=== PATIENT | female | born 1995 | race Caucasian/White ===

== ENCOUNTER → 2022-05-28 15:06 | Outpatient (CLI) | payer BC, SELFPAY ==
[2022-05-30 10:01] LABS: Fecal Immunochemical Test Negative (Negative)
== END ==
PROVIDERS: PCP Physician Assistant; Visit Provider Physician Assistant
DX: R10.32 Left lower quadrant pain (principal)
CPT/HCPCS: 82274

== ENCOUNTER → 2023-08-13 12:38 | Outpatient (CLI) | payer OTHER, SELFPAY ==
--- NOTE | 2023-08-13 12:40 | DI.US.S_ITS ---
PROCEDURE: US PELVIC COMPLETE INDICATIONS: pelvic pain. known left ovarian cyst TECHNIQUE: Real-time scanning was performed of the pelvic organs, with image documentation. Additional endovaginal scanning was necessary due to incomplete visualization of the adnexal and endometrial structures by transabdominal scanning. COMPARISON: None. FINDINGS: Uterus: Uterus is anteverted and normal in size at 8.3 x 3.9 x 5.7 cm. The myometrium is homogeneous. The endometrium measures 9.8 mm combined thickness. No uterine fibroids. Ovaries: The right ovary measures 1.5 x 3.2 x 2.4 cm, with a calculated ovarian volume of 6.1 cc. The left ovary measures 2.8 x 2.6 x 3.3 cm, with a calculated ovarian volume of 12.6 cc. Left ovarian two simple cysts with the largest measuring 1.8 centimeters. The ovaries have a normal sonographic appearance. Less than 12 follicles can be seen in each ovary. No adnexal masses are seen. Other: No pathologic free abdominal or pelvic fluid. IMPRESSION: Left ovarian simple cysts measuring up to 1.8 centimeters, statistically benign and no follow-up is necessary. No cause for patient's pelvic pain is identified. We strive to produce accurate, complete, and clear reports of imaging services. To assist us in improving patient care, this report was composed using standard report templates and voice recognition software. Therefore, it may contain abnormal punctuation, insertions and/or omissions. Occasional wrong-word or sound-alike substitutions may occur. Though we review the report and make efforts to correct it, we do recommend that the report be read carefully in proper context to recognize any text inaccuracies. Dictated by: Ilya Potter M.D. on 08/13/2023 at 13:54 Approved by: Ilya Potter M.D. on 08/13/2023 at 13:57
--- NOTE | 2023-08-13 12:40 | DI.US.S_ITS ---
LIMITED ULTRASOUND OF LEFT BREAST: 08/13/2023 CLINICAL: Palpable left breast lump x 6 mos. No prior exams were available for comparison. Color flow and real-time ultrasound of the left breast 12 o'clock region were performed. Gould scale images of the real-time examination were reviewed. No significant abnormalities were seen sonographically in the left breast. IMPRESSION: NEGATIVE No sonographic evidence of malignancy in the region of the palpable abnormality. Exam findings were conveyed to the patient. Patient is advised to monitor for significant change. Clinical follow-up as needed. This exam was interpreted at Station ID: [id number]. Electronically Signed By: Ananda Vance M.D. [facility]08/13/2023 13:29:04 letter sent: Normal Exam Ultrasound BI-RADS: 1 Negative
== END ==
PROVIDERS: PCP Physician Assistant; Referring Provider Physician Assistant; Visit Provider Physician Assistant
DX: N63.20 Unspecified lump in the left breast, unspecified quadrant (principal); N83.292 Other ovarian cyst, left side; R10.2 Pelvic and perineal pain
CPT/HCPCS: 76642; 76830; 76856; 93975

== ENCOUNTER → 2024-05-12 18:52 | Outpatient (CLI) | payer BC, SELFPAY | PROVIDERS: PCP Physician Assistant; Visit Provider Student in an Organized Health Care Education/Training Program | DX: R30.0 Dysuria (principal) | CPT/HCPCS: 87086 ==

== ENCOUNTER 2024-05-12 19:15 | Emergency (ER) | payer BC, SELFPAY ==
[2024-05-12 19:18] VITALS: BP 125/91; PULSE 95; RESP 16; TEMP 36.9; O2SAT 100; BMI 22.2
--- NOTE | 2024-05-12 21:37 | PC.NURSE ---
Pt requests not to have IV placed at this time. Straight stick with 21g butterfly left AC without difficulty.
[2024-05-12 21:42] LABS: Add Manual Diff / Slide Review NO; Basophils Absolute Auto 0 /uL (0-100); Basophils Percent Auto 0.4 % (0-2); Eosinophils Absolute Auto 100 /uL (0-450); Eosinophils Percent Auto 1.5 % (2-4); Hematocrit 34.3 % (36-46); Lymphocytes Absolute Auto 2300 /uL (1100-4500); Lymphocytes Percent Auto 23.1 % (25-40); Mean Corpuscular HGB Conc 34.8 % (30-36); Mean Corpuscular Volume 88.9 fL (80-100); Monocytes Absolute Auto 1300 /uL (0-900); Monocytes Percent Auto 13.1 % (3-14); Neutrophils Absolute Auto 6200 /uL (1500-7000); Neutrophils Percent Auto 61.9 % (50-75); Platelet Count 296 X10^3/uL (150-400); Red Blood Cell Count 3.86 X10^6/uL (4.0-5.2); Red Cell Distribution Width 12.2 % (11.6-14.8); White Blood Cell Count 9.9 X10^3/uL (4.5-11.0)
[2024-05-12 21:57] LABS: Alanine Aminotransferase 20 IU/L (<35); Albumin 3.9 g/dL (3.5-5.0); Alkaline Phosphatase 66 U/L (38-126); Aspartate Aminotransferase 24 IU/L (14-36); BUN Creatinine Ratio 14.9 (6-22); Bilirubin Total 0.4 mg/dL (0.2-1.3); Blood Urea Nitrogen 11 mg/dL (7-17); Calcium 9.4 mg/dL (8.4-10.2); Carbon Dioxide 27 mmol/L (22-32); Chloride 103 mmol/L (98-107); Estimated Glomerular Filt Rate > 60 mL/min (>60); Globulin 3.8 g/dL (1.7-4.1); Glucose 101 mg/dL (70-100); HEMOLYSIS < 15 (0-50); Lipase 79 U/L (23-300); Potassium 4.4 mmol/L (3.4-5.1); Sodium 134 mmol/L (137-145); Total Protein 7.7 g/dL (6.3-8.2)
[2024-05-12 22:14] VITALS: BP 131/84; PULSE 102; O2SAT 99
[2024-05-12 22:30] VITALS: BP 105/61; PULSE 94; O2SAT 100
--- NOTE | 2024-05-12 22:44 | ED_ITS ---
HPI - Abdominal Pain General Chief Complaint: Abdominal Pain Stated Complaint: WIC, fever 103, abd pain Time Seen by Provider: 05/12/24 21:39 History of Present Illness HPI narrative: 28-year-old female presents with 3-4 days of left-sided abdominal pain. Associated fevers at home with reported T-max 103.7?. Patient has been taking ibuprofen at home for symptoms. She tried to contact the [facility], however they referred her to the ER for additional evaluation. Patient denies nausea, vomiting, diarrhea, other complaints at this time. Patient reports history of diaphragmatic hernia repair as an , no other surgical history. Related Data Home Medications Medication Instructions Recorded Confirmed No Known Home Medications 05/22/22 05/12/24 Allergies Allergy/AdvReac Type Severity Reaction Status Date / Time No Known Drug Allergies Allergy Verified 05/12/24 18:56 Patient History Social History Smoking Status: Current some day smoker Smoking Status: Current some day smoker Substance Use Type: does not use Exam Initial Vital Signs Initial Vital Signs: Vital Signs Temperature 98.4 F 05/12/24 19:18 Pulse Rate 95 H 05/12/24 19:18 Respiratory Rate 16 05/12/24 19:18 Blood Pressure 125/91 H 05/12/24 19:18 Pulse Oximetry 100 05/12/24 19:18 Oxygen Delivery Method Room Air 05/12/24 19:18 Const: Awake, alert, no acute distress, nontoxic appearing Cardiac: regular rate, regular rhythm RESP: unlabored, clear bilaterally, no wheezing GI: Soft, minimal left upper and left lower quadrant tenderness to deep palpation without rebound or guarding Skin: Warm, Dry, intact, no rashes Neuro: AO x3, CN II-XII grossly intact, moves all extremities Course Orders Ordered: Discontinued Medications Ondansetron HCl (Ondansetron 4 Mg/2 Ml Inj) 4 mg IV NOW PRN PRN Reason: Nausea And Vomiting Ondansetron HCl (Ondansetron 4 Mg Odt) 4 mg PO NOW PRN PRN Reason: Nausea And Vomiting Vital Signs Vital signs: Vital Signs - 8 hr 05/12/24 19:18 05/12/24 22:14 05/12/24 22:14 Temperature 98.4 F Pulse Rate 95 H 102 H Respiratory Rate 16 Blood Pressure 125/91 H 131/84 Pulse Oximetry 100 99 Oxygen Delivery Method Room Air 05/12/24 22:30 05/12/24 22:30 05/12/24 23:26 Temperature Pulse Rate 94 H 96 H Respiratory Rate 14 Blood Pressure 105/61 122/58 L Pulse Oximetry 100 99 Oxygen Delivery Method Room Air MDM - Abdominal Pain Differential Diagnosis Differential diagnosis: Likely abdominal pain, diverticulitis and gastroenteritis Lab Data 05/12/24 21:34 05/12/24 21:34 Labs: Lab Results 05/12/24 05/12/24 Range/Units 18:49 21:34 WBC 9.9 (4.5-11.0) X10^3/uL RBC 3.86 L (4.0-5.2) X10^6/uL Hgb 12.0 (12.0-16.0) g/dL Hct 34.3 L (36-46) % MCV 88.9 (80-100) fL MCH 31.0 (26-34) PG MCHC 34.8 (30-36) % RDW 12.2 (11.6-14.8) % Plt Count 296 (150-400) X10^3/uL Neut % (Auto) 61.9 (50-75) % Lymph % (Auto) 23.1 L (25-40) % [place] % (Auto) 13.1 (3-14) % Eos % (Auto) 1.5 L (2-4) % Baso % (Auto) 0.4 (0-2) % Neut # (Auto) 6200 (9272-5456) /uL Lymph # (Auto) 2300 (1344-2536) /uL [place] # (Auto) 1300 H (0-900) /uL Eos # (Auto) 100 (0-450) /uL Baso # (Auto) 0 (0-100) /uL Sodium 134 L (137-145) mmol/L Potassium 4.4 (3.4-5.1) mmol/L Chloride 103 (98-107) mmol/L Carbon Dioxide 27 (22-32) mmol/L BUN 11 (7-17) mg/dL Creatinine 0.74 (0.52-1.04) mg/dL Estimated GFR > 60 (>60) mL/min BUN/Creatinine Ratio 14.9 (6-22) Glucose 101 H (70-100) mg/dL Calcium 9.4 (8.4-10.2) mg/dL Total Bilirubin 0.4 (0.2-1.3) mg/dL AST 24 (14-36) IU/L ALT 20 (<35) IU/L Alkaline Phosphatase 66 (38-126) U/L Total Protein 7.7 (6.3-8.2) g/dL Albumin 3.9 (3.5-5.0) g/dL Globulin 3.8 (1.7-4.1) g/dL Albumin/Globulin Ratio 1.0 (1.0-2.8) Lipase 79 (23-300) U/L Urine Test Negative (Negative) Imaging Data CT scan - abdomen/pelvis: Radiologist's Impression: PROCEDURE: CT ABDOMEN PELVIS W CON INDICATIONS: FEVER X 3 DAYS, LLQ PAIN TECHNIQUE: After the administration of intravenous contrast, axial sections acquired from the lung bases to the pubic symphysis. Coronal and sagittal reformats were performed. For radiation dose reduction, the following was used: automated exposure control, adjustment of mA and/or kV according to patient size. COMPARISON: None. FINDINGS: Image quality: Diagnostic. 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 ABDOMEN: Liver: No solid mass. Gallbladder: Contracted. No radiopaque gallstones or wall thickening. Biliary ducts: No biliary dilation. Pancreas: No ductal dilation. Spleen: Spleen is positioned anteriorly and inferiorly relative to the left kidney. Spleen is enlarged measuring up to 15 cm in craniocaudal dimension. Adrenal Glands: No adrenal nodules. Kidneys and Ureters: No hydronephrosis. No solid mass. No complex renal cystic lesion which requires follow up. Left kidney is similar superiorly located and abuts the left hemidiaphragm. Simple right renal cyst. Stomach and Bowel: Appendix is not visualized, but no signs of acute appendicitis adjacent to the cecum. Prominent nondilated fluid-filled loops of small bowel are seen throughout the abdomen. Mild bowel wall thickening in the distal descending and sigmoid colon. Peritoneum: Small amount of free fluid in the pelvis is nonspecific and likely reactive. No free air. Ventral Wall: No significant ventral hernia. Abdominal Nodes: No retroperitoneal or mesenteric adenopathy by size criteria. Vessels: Aorta and inferior vena cava are normal in size. PELVIS: Pelvic Organs: A menstrual cup device is incidentally noted. Bladder: No bladder wall thickening. Bladder is moderately distended. Pelvic Nodes: No enlarged lymph nodes. Miscellaneous: No inguinal hernias are seen. Bones: No aggressive osseous abnormality. IMPRESSION: 1. Nondilated fluid-filled loops of small bowel throughout the abdomen. Intermediate segment mild bowel wall thickening at the descending and sigmoid colon. Findings are suspicious for a possible nonspecific enterocolitis. 2. Splenomegaly. Approved by: Aldair Jane M.D. on 05/12/2024 at 23:57 MDM Narrative Medical decision making narrative: Several days of abdominal pain and reported fevers at home. Afebrile here in the emergency department. On physical exam abdomen is soft, there is minimal tenderness to deep palpation on the left side of the abdomen, however no peritoneal signs. Blood work shows no signs of acute infection, electrolytes normal, liver function normal. Shared decision-making with the patient at bedside, I explained that it was unlikely that there was a diagnosis that CT would be beneficial in revealing, however she it [facility] and that does make arranging care and imaging difficult. Patient states that she was like to proceed with CT imaging at this time. CT imaging shows some fluid-filled loops of small bowel concerning for enteritis. Patient informed of all lab and imaging findings, recommended supportive care measures at home. Discharge Plan Departure Patient Disposition: Home Clinical Impression: Abdominal pain Instructions: DI for Viral Gastroenteritis -- Adult Activity Restrictions/Additional Instructions: Your laboratory work today showed normal electrolytes and no signs of bacterial infection. Your CT scan showed some fluid in your bowel loops that is usually seen with gastroenteritis. You may experience diarrhea and abdominal cramping over the next several days, however this should resolve as your body ribs itself of infection. Make sure to stay hydrated and drink plenty of fluids. Prescriptions: No Action No Known Home Medications Referrals: Tonya Quevedo PA-C [Primary Care Provider] - Stand Alone Forms: Patient Portal/API/Survey
[2024-05-12 23:14] LABS: Pregnancy Test Urine Negative (Negative)
[2024-05-12 23:26] VITALS: BP 122/58; PULSE 96; RESP 14; O2SAT 99
[2024-05-12 23:27] VITALS: BP 122/58; PULSE 94; O2SAT 100
[2024-05-12 23:30] VITALS: BP 112/58; PULSE 93; O2SAT 99
[2024-05-13] VITALS: PULSE 88; O2SAT 100
[2024-05-13 00:01] VITALS: BP 104/59; PULSE 90; O2SAT 100
== END 2024-05-13 00:15 | disposition home or self-care (01) ==
PROVIDERS: Emergency Provider Emergency Medicine; PCP Physician Assistant
DX: R10.9 Unspecified abdominal pain (principal); R50.9 Fever, unspecified; R30.0 Dysuria
CPT/HCPCS: 74177; 80053; 81025; 83690; 85025; 87086; 99283; 99284; Q9967